=== PATIENT | female | born 2000 | race Caucasian/White ===

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

== ENCOUNTER → 2022-04-20 | Outpatient (CLI) | payer MEDICAID ==
--- NOTE | 2022-04-20 16:35 | Diagnostic Imaging Report ---
TECHNIQUE: Live grayscale ultrasound was performed of the soft tissues of the lumbar region. REASON FOR EXAM: Palpable mass in the soft tissues of the low back. COMPARISON: 01/09/2020. FINDINGS: In the area of palpable abnormality a tiny cystic area is seen in the subcutaneous soft tissues measuring 0.2 x 0.1 x 0.1 cm. No evidence of soft tissue mass. No other fluid collections are identified. IMPRESSION: 1. Tiny cystic focus in the subcutaneous soft tissues of the low back, which may represent a benign cyst. No evidence of soft tissue mass or suspicious fluid collection to suggest abscess. Dictated by: Dictated on workstation # [id number]
== END ==
LOC: RAD 14:45
PROVIDERS: ATTEND Surgery
DX: R22.2 Localized swelling, mass and lump, trunk (principal)
CPT/HCPCS: 76999